=== PATIENT | female | born 1975 | race Caucasian/White ===

== ENCOUNTER 2020-09-22 19:34 | Emergency (ER) | payer MEDICAID, MEDICARE ==
[~2020-09-22] VITALS: Ht 154.9 cm; Wt 73.9 kg
[~2020-09-22 19:34] MED LIST: AMMO12LO TP; ASPI81EC98 PO; DIVA500T1 PO; FAMO20CT PO; KETO2CRE31 TP; LACT10SO11; LACT10SO11 PO; LURA60TA PO; QUET400T PO; SENN8.6T90 PO; TOLN1CRE TP; TOPI200T7 PO; [UNRECOGNIZED DRUG - CODE] PO; [UNRECOGNIZED DRUG - CODE] TP
[2020-09-22 19:51] VITALS: BP 110/71
--- NOTE | 2020-09-22 19:55 | NUR ---
to bed # 06 ambulatory with corporate sales trainer
--- NOTE | 2020-09-22 20:40 | NUR ---
44 Y/O BIB PRIMARY CAREGIVER C/O LACERATION ON THE LEFT EYELID S/P FALL IN THE RESTROOM. CAREGIVER STATES THAT PT SLIPPED ON THE BATHROOM FLOOR AND HIT HER HEAD ON THE BATHROOM FLOOR. CAREGIVER DENIES LOC/N/V. TETANUS UP TO DATE. RR EVEN AND UNLABORED. CAREGIVER AT BEDSIDE. BED LOCKED AND IN LOWEST POSITION, SIDE RAIL UPX1. WILL CONTINUE TO MONITOR. MHX: SEIZURES NKA
--- NOTE | 2020-09-22 20:52 | NUR ---
DR. SEVILLA AT BEDSIDE EVALUATING PT.
--- NOTE | 2020-09-22 21:20 | NUR ---
PT TAKEN TO CT VIA WHHELCHAIR
--- NOTE | 2020-09-22 21:26 | NUR ---
technician trainee states pt has emotional outburst and would not get on the CT machine. Dr. Mathew made aware.
[2020-09-22] MEDS ORDERED: MIDAZOLAM 2 MG/2 ML VIAL IM ONE (21:55)
--- NOTE | 2020-09-22 22:30 | NUR ---
DERMABOND PROVIDED AT BEDSIDE FOR EMILY SEVILLA ADMINISTRATION.
[2020-09-22 22:44] VITALS: BP 134/98
--- NOTE | 2020-09-22 22:59 | NUR ---
Patient discharged with v/s stable. Written and verbal after care instructions given and explained. Patient verbalized understanding. Ambulatory with steady gait. All questions addressed prior to discharge. Advised to follow up with PMD.
== END 2020-09-22 22:59 | disposition home or self-care (01) ==
LOC: MED 19:34
DX: S01.112A Laceration without foreign body of left eyelid and periocular area, initial encounter (principal); R56.9 Unspecified convulsions; Z79.899 Other long term (current) drug therapy; W01.0XXA Fall on same level from slipping, tripping and stumbling without subsequent striking against object, initial encounter; Y93.89 Activity, other specified; Y92.89 Other specified places as the place of occurrence of the external cause; Y99.8 Other external cause status
CPT/HCPCS: 12001; 96372; 99283; J2250

== ENCOUNTER 2021-03-30 14:28 | Emergency (ER) | payer BC, MEDICAID ==
[~2021-03-30] VITALS: Ht 157.5 cm; Wt 73.9 kg
[2021-03-30 14:56] VITALS: BP 141/73
--- NOTE | 2021-03-30 15:15 | NUR ---
45 Y/O FEMALE BIB CAREGIVER W/C ASSISTED C/O FALL OFF BED AT HOME X7.5HRS, PT C/O RIGHT KNEE PAIN 7/10 WORSE WITH BEARING WEIGHT X3HRS. SWELLING TO RKNEE, NO BRUISING NOTED. DENIES LOC. PMH: INTELLECTUAL DISABILITY, DEPRESSION WITH PSYCHOSIS, AND EPILEPSY NKA
[2021-03-30] MEDS ORDERED: IBUP-1842 PO (16:21)
[2021-03-30 16:30] VITALS: BP 141/73
== END 2021-03-30 16:30 | disposition home or self-care (01) ==
LOC: MED 14:28
DX: S80.01XA Contusion of right knee, initial encounter (principal); Z79.899 Other long term (current) drug therapy; Z79.82 Long term (current) use of aspirin; W19.XXXA Unspecified fall, initial encounter; Y93.89 Activity, other specified; Y92.89 Other specified places as the place of occurrence of the external cause; Y99.8 Other external cause status
CPT/HCPCS: 73562; 99283